=== PATIENT | male | born 1985 ===

== ENCOUNTER 2016-12-14 14:30 | Emergency (ER) | payer SELFPAY ==
[2016-12-14 15:51] VITALS: BP 126/78
--- NOTE | 2016-12-14 16:22 | UC ---
Back Pain HPI - HPI Summary HPI Summary: 31 YEAR OLD MALE PRESENTS WITH RIGHT LOWER BACK PAIN. - History of Current Complaint Chief Complaint: UCBackPain Stated Complaint: LOWER BACK PAIN-POSS PULLED MUSCLE Time Seen by Provider: 12/14/16 16:16 - Allergies/Home Medications Allergies/Adverse Reactions: Allergies Allergy/AdvReac Type Severity Reaction Status Date / Time No Known Allergies Allergy Verified 12/14/16 15:43 PMH/Surg Hx/FS Hx/Imm Hx - Surgical History Surgical History: Yes Surgery Procedure, Year, and Place: RIGHT knee - Social History Alcohol Use: Daily Alcohol Amount: 2 drinks/day Substance Use Type: None Smoking Status (MU): Current Some Day Smoker - Immunization History Most Recent Influenza Vaccination: 2015 Most Recent Tetanus Shot: UTD Review of Systems Constitutional: Negative Skin: Negative Eyes: Negative ENT: Negative Respiratory: Negative Cardiovascular: Negative Gastrointestinal: Negative Genitourinary: Negative Motor: Negative Neurovascular: Negative Musculoskeletal: Myalgia, Other: - RIGHT LOWER BACK PAIN Neurological: Negative Psychological: Negative All Other Systems Reviewed And Are Negative: Yes Physical Exam Triage Information Reviewed: Yes Vital Signs: Initial Vital Signs Temp 36.8 C 12/14/16 15:44 Pulse 79 12/14/16 15:44 Resp 16 12/14/16 15:44 BP 126/78 12/14/16 15:44 Pulse Ox 100 12/14/16 15:44 Eye Exam: Normal ENT Exam: Normal Dental Exam: Normal Neck exam: Normal Neck: Positive: 1 Respiratory Exam: Normal Cardiovascular Exam: Normal Abdominal Exam: Normal Musculoskeletal Exam: Normal Musculoskeletal: Positive: Strength Limited @, ROM Limited @, Other: - RIGHT LOWER PARASPINAL BACK PAIN Neurological Exam: Normal Psychological Exam: Normal Skin Exam: Normal Back Pain Course/Dx - Differential Dx/Diagnosis Provider Diagnoses: RIGHT LOWER BACK PAIN Discharge - Discharge Plan Condition: Stable Disposition: HOME Prescriptions: Meloxicam [Mobic] 7.5 mg PO BID #30 tab Methocarbamol [Robaxin-750 MG TAB] 750 mg PO Q8HR PRN #30 tab PRN Reason: Spasms - Back Patient Education Materials: Low Back Strain (ED) Forms: *Work Release Referrals: Non Staff,Doctor [Primary Care Provider] -
== END 2016-12-14 16:30 | disposition home or self-care (01) ==
LOC: UCCORT 14:30
DX: M54.5 Low back pain (principal); Z72.0 Tobacco use
CPT/HCPCS: 99212; G0463